=== PATIENT | female | born 1940 | race African-American/Black ===

== ENCOUNTER 2024-01-06 10:57 | Emergency (ER) | payer MEDICARE, MEDICAID ==
[~2024-01-06] VITALS: Ht 167.6 cm; Wt 64.0 kg
[2024-01-06 11:06] VITALS: O2SAT 99
[2024-01-06 13:31] VITALS: BP 120/80; PULSE 70; RESP 15; TEMP 98.4
[2024-01-06] MEDS: ACETAMINOPHEN 325MG TABLET PO ONE (13:31)
== END 2024-01-06 13:32 | disposition home or self-care (01) ==
LOC: ER 10:57
DX: S09.90XA Unspecified injury of head, initial encounter (principal); E11.9 Type 2 diabetes mellitus without complications; I10 Essential (primary) hypertension; Z88.0 Allergy status to penicillin; V49.49XA Driver injured in collision with other motor vehicles in traffic accident, initial encounter; Y93.89 Activity, other specified; Y92.89 Other specified places as the place of occurrence of the external cause; Y99.8 Other external cause status
CPT/HCPCS: 99284